=== PATIENT | female | born 1955 | race Hispanic/Latino ===

== ENCOUNTER 2022-12-17 08:26 | Emergency (ER) | payer OTHER ==
[2022-12-17] MEDS ORDERED: ACETAMINOPHEN 500 MG TAB ONE (08:47)
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
[2022-12-17 09:38] LABS: Albumin 3.8 g/dL (3.4-5.0); Bilirubin Total 0.7 mg/dL (0.2-1.0); Potassium 4.5 mmol/L (3.5-5.1); Protein, Total 8.2 g/dL (6.4-8.2)
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
[2022-12-17 10:33] VITALS: BP 148/83; TEMP 98; O2SAT 97
== END 2022-12-17 10:28 | disposition home or self-care (01) ==
LOC: ER 08:26
DX: S30.1XXA Contusion of abdominal wall, initial encounter (principal); M25.531 Pain in right wrist; V49.49XA Driver injured in collision with other motor vehicles in traffic accident, initial encounter
CPT/HCPCS: 74176; 80053; 99284